=== PATIENT | female | born 1970 | race Caucasian/White ===

== ENCOUNTER → 2016-12-14 | Outpatient (CLI) | payer BC ==
--- NOTE | 2016-12-14 15:40 | RAD ---
Examination: 3 views of the right knee history: History of right knee pain for 2 weeks. Comparison: None available Findings: The alignment of the knee joint grossly appears unremarkable. There is no acute fracture or dislocation identified. Impression: No acute osseous findings
== END | disposition home or self-care (01) ==
LOC: DXRADRC 14:09
PROVIDERS: ATTEND Physician Assistant Medical
DX: M25.561 Pain in right knee (principal)
CPT/HCPCS: 73562

== ENCOUNTER 2017-04-25 22:09 | Emergency (ER) | payer BC, OTHER ==
[~2017-04-25] VITALS: Ht 157.5 cm; Wt 61.4 kg
[2017-04-25] MEDS ORDERED: LURA20TA PO (22:37)
[2017-04-25] MEDS ORDERED: DIVA500T2 PO (22:37)
[2017-04-25] MEDS ORDERED: BUDE10.2 IH (22:37)
[2017-04-25] MEDS ORDERED: DEXAMETHASONE SOD PHOS 10 MG/ML VIAL IV ONE (22:45)
[2017-04-25] MEDS ORDERED: IV NORMAL SALINE 1,000ML 1,000 ML IV ONE (22:45)
[2017-04-25] MEDS ORDERED: diphenhydrAMINE 50 MG/ML VIAL IVP ONE (22:45)
[2017-04-25] MEDS ORDERED: METOCLOPRAMIDE HCL 10 MG/2 ML VIAL. IV ONE (22:45)
[2017-04-25] MEDS ORDERED: MAGNESIUM SULFATE 2GM 50 ML IV ONE (22:45)
[2017-04-25] MEDS ORDERED: cloNIDine HCL 0.1 MG TABLET PO ONE ×2 (22:45→23:45)
--- NOTE | 2017-04-25 22:50 | PHYS DOC ---
Past History Past Medical History: Hypertension, Migraines Past Surgical History: Appendectomy, Cholecystectomy, Hysterectomy Alcohol Use: None Drug Use: None Adult General Chief Complaint Chief Complaint: HYPERTENSION HPI HPI Patient is a 46 year old F who presents with headache and high blood pressure. Patient states that for the past couple days she's been having increased blood pressures and has been keeping a diary with blood pressures systolic ranging between 160 and 200. Patient is not currently on any blood pressure medication at this time. Patient also has a history of migraines. Patient states the headache is to the left side of her head. Patient describes sensitivity to light. Patient states she has a follow-up with a neurologist for further evaluation of her headaches. Patient denies any fevers. Patient denies any chest pain returns of breath. Patient has nausea with no vomiting. Patient other complaints. Review of Systems Review of Systems GEN: Denies fevers, chills, sweats HEENT: Denies blurred vision, sore throat CV: Denies chest pain RESP: Denies shortness of air, cough GI: Denies n/v/d NEURO: Headache MSK: Denies weakness, joint pain/swelling Current Medications Current Medications Current Medications Medications (Trade) Dose Ordered Sig/Shannan Start Time Stop Time Status Last Admin Dose Admin Clonidine HCl (Catapres) 0.1 mg 1X ONCE 04/25/17 22:45 04/25/17 22:46 DC Dexamethasone Sodium Phosphate (Decadron) 10 mg 1X ONCE 04/25/17 22:45 04/25/17 22:46 DC Diphenhydramine HCl (Benadryl) 50 mg 1X ONCE 04/25/17 22:45 04/25/17 22:46 DC Magnesium Sulfate 50 ml @ 25 mls/hr 1X ONCE 04/25/17 22:45 04/26/17 00:44 Metoclopramide HCl (Reglan) 10 mg 1X ONCE 04/25/17 22:45 04/25/17 22:46 DC Sodium Chloride 1,000 ml @ 1,000 mls/hr 1X ONCE 04/25/17 22:45 04/25/17 23:44 Allergies Allergies Allergies Coded Allergies Type Severity Reaction Last Updated Verified morphine Allergy Severe 02/24/16 Yes Physical Exam Physical Exam GEN.: No apparent distress. Alert and oriented. HEENT: Head is normocephalic, atraumatic, pupils are equal and reactive bilaterally, extraocular muscles are intact bilaterally NECK: Supple. LUNGS: CTAB. HEART: RRR, S1, S2 present. Peripheral pulses intact ABDOMEN: Soft, nontender. Positive bowel sounds. EXTREMITIES: Without any cyanosis. NEUROLOGIC: Normal speech, normal tone, cranial nerves II through XII are grossly intact without any focal neurological deficits PSYCHIATRIC: Normal affect, normal mood. SKIN: No ulcerations Current Patient Data Vital Signs Vital Signs Date Time Temp Pulse Resp B/P (MAP) Pulse Ox O2 Delivery O2 Flow Rate FiO2 04/25/17 22:09 98.2 82 16 100 Room Air EKG EKG [] Radiology/Procedures Radiology/Procedures CT scan of the head was unremarkable[] Course & Med Decision Making Course & Med Decision Making Pertinent Labs and Imaging studies reviewed. (See chart for details) ED course: Patient was seen and examined emergency room CBC, BMP, CT scan of head without contrast, 1 L normal saline, 2 g magnesium, 10 mg of Decadron, 59 g of Benadryl , 10 monos Reglan were ordered 2342: Patient was reevaluated in which she is feeling much better and updated on lab work and CT findings. Patient's repeat blood pressure after receiving 0.1 mg of Catapres was 129/78 0043: Patient was ambulated around emergency room with no difficulties. Patient' s blood pressure was in the 140s systolic and she was asymptomatic. Patient is stable for discharge. MDM: After reviewing the chart, CC/HPI/PMH, physical exam, [lab results], [ radiological results], I do not believe the patient has acute intracranial process warranting further workup and/or admission at this time. I do not believe the patient has an acute hypertensive emergency warranting IV blood pressure medication. On reevaluation the patient is feeling much better and the headache is resolved and her blood pressures come down. I believe the patient is stable for discharge. Recommended short-term follow-up with her PCP for blood pressure management. Additional verbal discharge instructions were provided to the patient and that if symptoms get worse or any new symptoms arise that are worrisome to the patient she is to return to the emergency room immediately [] Dragon Disclaimer Dragon Disclaimer This chart was dictated in whole or in part using Voice Recognition software in a busy, high-work load, and often noisy Emergency Department environment. It may contain unintended and wholly unrecognized errors or omissions. Departure Departure: Impression: Primary Impression: Headache Additional Impression: Hypertension Disposition: 01 HOME, SELF-CARE Condition: IMPROVED Referrals: HARDEEP MABRY (PCP) Patient Instructions: General Headache Without Cause, Hypertension Additional Instructions: Please follow-up with your family physician in the next one to 2 days and return if symptoms increase Problem Qualifiers DANIEL PAREKH DO Apr 25, 2017 22:50
[2017-04-25 23:09] LABS: BASO % 1 % (0-3); EOS # 0.2 x10^3/uL (0.0-0.7); EOS % 2 % (0-3); HEMATOCRIT 43.8 % (36.0-47.0); HEMOGLOBIN 15.2 g/dL (12.0-15.5); LYMPH # 2.3 x10^3/uL (1.0-4.8); LYMPH % 35 % (24-48); MEAN CORPUSCULAR HEMOGLOBIN 30 pg (25-35); MEAN CORPUSCULAR HGB CONC 35 g/dL (31-37); MEAN CORPUSCULAR VOLUME 86 fL (79-100); MONO # 0.5 x10^3/uL (0.0-1.1); MONO % 7 % (0-9); NEUT # 3.6 x10^3uL (1.8-7.7); NEUT % 55 % (31-73); PLATELET COUNT 212 x10^3/uL (140-400); RED CELL DISTRIBUTION WIDTH 13.8 % (11.5-14.5); WHITE BLOOD COUNT 6.5 x10^3/uL (4.0-11.0)
[2017-04-25 23:14] LABS: CALCIUM 9.5 mg/dL (8.5-10.1); CREATININE 1.3 mg/dL (0.6-1.0); GFR 43.9; POTASSIUM 4.1 mmol/L (3.5-5.1)
--- NOTE | 2017-04-25 23:29 | RAD ---
INDICATION: [id number] Severe headache, elevated blood pressure, change in vision, dizziness. No priors. COMPARISON: None. TECHNIQUE: Axial CT images obtained through the head without intravenous contrast. One or more of the following individualized dose reduction techniques were utilized for this examination: 1. Automated exposure control; 2. Adjustment of the mA and/or kV according to patient size; 3. Use of iterative reconstruction technique. FINDINGS: No intracranial hemorrhage. No midline shift. Basal cisterns patent. Ventricles and sulci are unremarkable. No acute osseous abnormality. Nasal septal deviation to the left. IMPRESSION: 1. No acute intracranial hemorrhage. Electronically signed by: Henry Turk MD (04/25/2017 11:26 PM) [facility]
[2017-04-25] MEDS ORDERED: KETOROLAC 30 MG/ML VIAL. IV ONE (23:30)
[2017-04-26] MEDS ORDERED: IV NORMAL SALINE 1,000ML 1,000 ML IV ONE
[2017-04-26 00:40] VITALS: BP 146/92
== END 2017-04-26 00:41 | disposition home or self-care (01) ==
LOC: ER 22:09
DX: G43.909 Migraine, unspecified, not intractable, without status migrainosus (principal); I10 Essential (primary) hypertension; Z88.5 Allergy status to narcotic agent
CPT/HCPCS: 36415; 70450; 80048; 85025; 96365; 96375; 99285; J1100; J1200; J1885; J2765; J3475; J7030

== ENCOUNTER → 2018-05-13 | Outpatient (CLI) | payer OTHER ==
[~2018-05-13] MED LIST: BUDE10.2 IH; DIVA500T2 PO; IOHEXOL 240 MG/ML 50ML VIAL. PO ONE; IOHEXOL 300 MG/ML 75 ML VIAL. IV ONE; LURA20TA PO
--- NOTE | 2018-05-14 10:28 | RAD ---
CT ABD PELV W/ORAL IV CONTRAST dated 05/13/2018 12:00 AM Indication: Pain.RLQ pain, pelvic pain, bloating, increased retention of fluid for two weeks. OMNI 240 30ml in BREEZA OMNI 300 60ml, reduced dose per dept protocol. GFR 48, CREAT 1.3. Comparison: 02/24/2016 Technique: Contiguous axial imaging of the abdomen and pelvis performed following the administration of oral contrast and 60 cc Omnipaque 300. One or more of the following individualized dose reduction techniques were utilized for this examination: 1. Automated exposure control 2. Adjustment of the mA and/or kV according to patient size 3. Use of iterative reconstruction technique Findings: Limited images of lung bases are clear. Heart size within normal limits. No pleural or pericardial effusion. Liver is of diffuse low density compatible with fatty infiltration. No apparent mass. Biliary tree normal in caliber. Gallbladder surgically absent. Spleen is normal in size. Pancreas, adrenal glands and right kidney are unremarkable. There is a 3 mm calcific stone at the upper pole left kidney with associated cortical scarring. 2 mm calcific stone stone at the mid to lower pole left kidney. The left kidney is somewhat atrophic and there is some prominence of the left renal pelvis. No definite ureteral stone or hydronephrosis. Partially opacified GI tract normal in caliber and contour. No focal bowel wall thickening. No inflammatory stranding in the mesentery. The appendix is not identified and may be surgically absent. No free fluid or lymphadenopathy. Abdominal aorta normal in caliber. Images of pelvis show mildly distended urinary bladder. Uterus is surgically absent. No free fluid or lymphadenopathy. Bone windows show no acute findings. Mild multilevel spondylosis. IMPRESSION: 1. No acute abnormality of abdomen or pelvis. 2. Mild fatty infiltration of the liver. 3. Left-sided nephrolithiasis with cortical scarring and atrophy, similar to prior study. There is mild prominence of the left pelvicalyceal system, unchanged. 4. Status post cholecystectomy and hysterectomy. Electronically signed by: Smooth Ford MD (05/14/2018 10:25 AM) [facility]
== END | disposition home or self-care (01) ==
LOC: CT 15:59
PROVIDERS: ATTEND Neuromusculoskeletal Medicine & OMM
DX: N20.0 Calculus of kidney (principal); N26.1 Atrophy of kidney (terminal); K76.0 Fatty (change of) liver, not elsewhere classified; Z90.49 Acquired absence of other specified parts of digestive tract
CPT/HCPCS: 74177; Q9967

== ENCOUNTER → 2019-06-06 | Outpatient (CLI) | payer OTHER ==
[~2019-06-06] MED LIST changes: -IOHEXOL 240 MG/ML 50ML VIAL. PO ONE; -IOHEXOL 300 MG/ML 75 ML VIAL. IV ONE
--- NOTE | 2019-06-06 12:35 | RAD ---
HAND RIGHT 3V 06/06/2019 12:10 PM INDICATION: Right hand pain COMPARISON: None available. TECHNIQUE: 3 views of the right hand are provided. FINDINGS: There is no acute fracture or dislocation. Bone mineralization is within normal limits. Joint spaces are maintained. Regional soft tissues are within normal limits. There is no soft tissue gas or osseous erosion. IMPRESSION: No acute fracture or dislocation. Electronically signed by: Vivi Decker MD (06/06/2019 12:32 PM) [facility]
== END | disposition home or self-care (01) ==
LOC: PMG 11:27
PROVIDERS: ATTEND Physician Assistant Medical
DX: M79.641 Pain in right hand (principal)
CPT/HCPCS: 73130

== ENCOUNTER 2020-11-09 17:33 | Emergency (ER) | payer OTHER ==
[~2020-11-09] VITALS: Ht 157.5 cm; Wt 77.2 kg
[2020-11-09] MEDS ORDERED: METOPROLOL TART IMMED RELEASE 25 MG TABLET. PO ONE (18:15)
[2020-11-09 18:53] LABS: BASO # 0.1 x10^3/uL (0.0-0.2); BASO % 1 % (0-3); EOS # 0.2 x10^3/uL (0.0-0.7); EOS % 3 % (0-3); HEMATOCRIT 47.3 % (36.0-47.0); LYMPH # 2.9 x10^3/uL (1.0-4.8); LYMPH % 39 % (24-48); MEAN CORPUSCULAR HEMOGLOBIN 29 pg (25-35); MEAN CORPUSCULAR HGB CONC 34 g/dL (31-37); MEAN CORPUSCULAR VOLUME 87 fL (79-100); MONO # 0.6 x10^3/uL (0.0-1.1); MONO % 8 % (0-9); NEUT # 3.6 x10^3uL (1.8-7.7); NEUT % 49 % (31-73); PLATELET COUNT 273 x10^3/uL (140-400); RED BLOOD COUNT 5.44 x10^6/uL (3.50-5.40); RED CELL DISTRIBUTION WIDTH 13.9 % (11.5-14.5); WHITE BLOOD COUNT 7.3 x10^3/uL (4.0-11.0)
[2020-11-09 19:02] LABS: CALCIUM 9.6 mg/dL (8.5-10.1); CREATININE 1.2 mg/dL (0.6-1.0); GFR 47.4; POTASSIUM 3.8 mmol/L (3.5-5.1)
[2020-11-09 19:08] LABS: ALBUMIN 4.1 g/dL (3.4-5.0); ALBUMIN/GLOBULIN RATIO 1.2 (1.0-1.7); TOTAL BILIRUBIN 0.6 mg/dL (0.2-1.0); TOTAL PROTEIN 7.6 g/dL (6.4-8.2)
[2020-11-09 19:16] VITALS: BP 165/101
--- NOTE | 2020-11-09 19:44 | PHYS DOC ---
Past History Past Medical History: Hypertension (YORDAN ABREU APRN) Past Surgical History: Appendectomy, Cholecystectomy, Hysterectomy (YORDAN ABREU APRN) Alcohol Use: None Drug Use: None (YORDAN ABREU APRN) Adult General Chief Complaint Chief Complaint: HYPERTENSION HPI HPI Patient is a 50-year-old female who presents to the emergency department reporting that she went for a follow-up appointment for her high blood pressure and to get other labs done such as hemoglobin A1c and work-up for her ongoing high blood pressure problems, patient states that her blood pressure was 180/110 at her appointment and she was immediately sent to the emergency department for a hypertensive emergency. Patient denies any headaches, shortness of breath, chest pain, abdominal pain, chest congestion nasal congestion, nausea, vomiting, or diarrhea. Patient denies any other physical complaints or physical concerns. Patient states she takes 50 mg of metoprolol at home, and was going in to see her primary care doctor to get her blood pressure medications adjusted. Patient states she does not keep an accurate record of her blood pressure (YORDAN ABREU APRN) Review of Systems Review of Systems 14 body systems of review of systems have been reviewed. See HPI for pertinent positives and negative responses, otherwise all other systems are negative, nonpertinent or noncontributory. (YORDAN ABREU APRN) Current Medications Current Medications Current Medications Medications (Trade) Dose Ordered Sig/Shannan Start Time Stop Time Status Last Admin Dose Admin Metoprolol Tartrate (Lopressor) 25 mg 1X ONCE 11/09/20 18:15 11/09/20 18:16 DC 11/09/20 18:47 25 MG (YORDAN ABREU APRN) Allergies Allergies Allergies Coded Allergies Type Severity Reaction Last Updated Verified morphine Allergy Severe 02/24/16 Yes clonidine Allergy Unknown 05/13/18 Yes (YORDAN ABREU APRN) Physical Exam Physical Exam Constitutional: Well developed, well nourished, no acute distress, non-toxic appearance. 50-year-old female in no apparent distress. HENT: Normocephalic, atraumatic, bilateral external ears normal, oropharynx mo ist, no oral exudates, nose normal. Oropharynx moist, pink, no deep tissue infection appreciated, no drooling, no trismus, no lymphadenopathy of the head or neck appreciated. Eyes: PERRLA, EOMI, conjunctiva normal, no discharge. Neck: Normal range of motion, no tenderness, supple, no stridor. No meningismus signs, no nuchal rigidity appreciated. Cardiovascular:Heart rate regular rhythm, no murmur, heart sounds S1-S2 to auscultation. Lungs & Thorax: Bilateral breath sounds clear to auscultation all lung bah, no adventitious lung sounds appreciated. Abdomen: Bowel sounds normal, soft, no tenderness, no masses, no pulsatile masses. Skin: Warm, dry, no erythema, no rash. Back: No tenderness, no CVA tenderness. Extremities: No tenderness, no cyanosis, no clubbing, ROM intact, no edema. Neurologic: Alert and oriented X 3, normal motor function, normal sensory function, no focal deficits noted. Psychologic: Affect normal, judgement normal, mood normal. (YORDAN ABREU APRN) Current Patient Data Vital Signs Vital Signs Date Time Temp Pulse Resp B/P (MAP) Pulse Ox O2 Delivery O2 Flow Rate FiO2 11/09/20 19:16 53 20 165/101 (122) 99 Room Air 11/09/20 18:34 98.9 Lab Results Laboratory Tests Test 11/09/20 18:40 White Blood Count 7.3 x10^3/uL (4.0-11.0) Red Blood Count 5.44 x10^6/uL (3.50-5.40) H Hemoglobin 16.0 g/dL (12.0-15.5) H Hematocrit 47.3 % (36.0-47.0) H Mean Corpuscular Volume 87 fL (79-100) Mean Corpuscular Hemoglobin 29 pg (25-35) Mean Corpuscular Hemoglobin Concent 34 g/dL (31-37) Red Cell Distribution Width 13.9 % (11.5-14.5) Platelet Count 273 x10^3/uL (140-400) Neutrophils (%) (Auto) 49 % (31-73) Lymphocytes (%) (Auto) 39 % (24-48) Monocytes (%) (Auto) 8 % (0-9) Eosinophils (%) (Auto) 3 % (0-3) Basophils (%) (Auto) 1 % (0-3) Neutrophils # (Auto) 3.6 x10^3uL (1.8-7.7) Lymphocytes # (Auto) 2.9 x10^3/uL (1.0-4.8) Monocytes # (Auto) 0.6 x10^3/uL (0.0-1.1) Eosinophils # (Auto) 0.2 x10^3/uL (0.0-0.7) Basophils # (Auto) 0.1 x10^3/uL (0.0-0.2) Sodium Level 143 mmol/L (136-145) Potassium Level 3.8 mmol/L (3.5-5.1) Chloride Level 108 mmol/L (98-107) H Carbon Dioxide Level 27 mmol/L (21-32) Anion Gap 8 (6-14) Blood Urea Nitrogen 13 mg/dL (7-20) Creatinine 1.2 mg/dL (0.6-1.0) H Estimated GFR (Cockcroft-Gault) 47.4 BUN/Creatinine Ratio 11 (6-20) Glucose Level 95 mg/dL (70-99) Calcium Level 9.6 mg/dL (8.5-10.1) Total Bilirubin 0.6 mg/dL (0.2-1.0) Aspartate Amino Transferase (AST) 25 U/L (15-37) Alanine Aminotransferase (ALT) 54 U/L (14-59) Alkaline Phosphatase 94 U/L (46-116) Total Protein 7.6 g/dL (6.4-8.2) Albumin 4.1 g/dL (3.4-5.0) Albumin/Globulin Ratio 1.2 (1.0-1.7) (YORDAN ABREU APRN) EKG EKG [] (YORDAN ABREU APRN) Radiology/Procedures Radiology/Procedures [] (YORDAN ABREU APRN) Heart Score C/O Chest Pain: No Risk Factors: Risk Factors: DM, Current or recent (<one month) smoker, HTN, HLP, family history of CAD, obesity. Risk Scores: Risk Factors: DM, Current or recent (<one month) smoker, HTN, HLP, family history of CAD, obesity. (YORDAN ABREU APRN) Course & Med Decision Making Course & Med Decision Making Pertinent Labs and Imaging studies reviewed. (See chart for details) 50-year-old female, vital signs reviewed, presents emergency department for a high blood pressure that was taken in her doctor's office just prior to arrival. Patient's blood pressure was 146/94 examination. Discussed with patient we will draw a CBC and a BMP and give a 25 mg of metoprolol and monitor for a period of time. Patient had no chest pain, the patient was nontoxic in formerly [facility], the patient was not hypoxic. Discussed EKG and chest x-ray, the patient I made a joint decision to defer this at this time as she has no chest pain or chest congestion or shortness of breath. Patient lab results were unremarkable, discussed with patient lab results, discussed with patient at length keeping an accurate daily log of her blood pressures. Patient's physical reexamination continued to be unremarkable, the patient remained nontoxic in appearance, she was not hypoxic, bedside blood pressure was 165/90. Patient gave verbal understanding of discharge home instructions, keeping a daily log of her blood pressures twice a day for the next several days until she sees her primary care physician this coming Saturday. Patient gave verbal understanding of return to ER precautions or concerns, patient felt comfortable going home and keeping a daily log of her blood pressures and following up with her doctor this coming Saturday. Patient was discharged home without incident. (YORDAN ABREU APRN) Dragon Disclaimer Dragon Disclaimer This electronic medical record was generated, in whole or in part, using a voice recognition dictation system. (YORDAN ABREU APRN) Attending Co-Sign The chart was reviewed. The case was discussed. Agree with the plan of care. (JARAD REINOSO DO) Departure Departure: Impression: Primary Impression: High blood pressure Disposition: 01 HOME / SELF CARE / HOMELESS Condition: GOOD Referrals: AGGIE MABRY (PCP) Additional Instructions: You were seen today in the emergency department for high blood pressure, we have discussed at length keeping an accurate log of your blood pressures twice a day to bring to your primary care provider JAK Majano. We adrian lab work today that did not show any concerning findings or require an admission to the hospital today. Please return to the emergency department for worsening symptoms or other concerns. Please increase your fluid intake as we discussed. Please continue to take your home medications as prescribed by your primary c are provider, I encourage you to see Aggie soon as she may adjust your blood pressure medications. EMERGENCY DEPARTMENT GENERAL DISCHARGE INSTRUCTIONS Thank you for coming to [facility] (ED) today and trusting us with you care. We trust that you had a positivie experience in our Emergency Department. If you wish to speak to the department management, you may call the director at [phone]. YOUR FOLLOW UP INSTRUCTIONS ARE FOLLOWS: 1. Do you have a private Doctor? If you do not have a private doctor, please ask for a resource list of physicians or clinics that may be able to assist you with follo w up care. 2. The Emergency Physician has interpreted your x-rays. The X-Ray specialist will also review them. If there is a change in the findings, you will be notified in 48 hours when at all possible. 3. A lab test or culture has been done, your results will be reviewed and you will be notified if you need a change in treatment. ADDITIONAL INSTRUCTIONS AND INFORMATION: 1. Your care today has been supervised by a physician who is specially trained in emergency care. Many problems require more than one evaluation for a complete diagnosis and treatment. We recommend that you schedule your follow up appointment as rec ommended to ensure complete treatment of you illness or injury. If you are unable to obtain follow up care and continue to have a problem, or if your condition worsens, we recommend that you return to the ED. 2. We are not able to safely determine your condition over the phone nor are we able to give sound medical advice over the phone. For these safety reasons, if you call for medical advice we will ask you to come to the ED for further evaluation. 3. If you have any questions regarding these discharge instructions please call the ED at [phone]. SAFETY INFORMATION: In the interest of safety, wellness, and injury prevention; we encourage you to wear your sealbelt, if you smoke; quite smoking, and we encourage family to use a protective helmet for bicycling and other sporting events that present an increased risk for head injury. IF YOUR SYMPTOMS WORSEN OR NEW SYMPTOMS DEVELOP, OR YOU HAVE CONCERNS ABOUT YOUR CONDITION; OR IF YOUR CONDITION WORSENS WHILE YOU ARE WAITING FOR YOUR FOLLOW UP APPOINTMENT; EITHER CONTACT YOUR PRIMARY CARE DOCTOR, THE PHYSICIAN WHOSE NAME AND NUMBER YOU WERE GIVEN, OR RETURN TO THE ED IMMEDIATELY. Problem Qualifiers Primary Impression: High blood pressure Hypertension type: unspecified Qualified Codes: I10 - Essential (primary) hypertension YORDAN ABREU APRN Nov 09, 2020 19:44 JARAD REINOSO DO Nov 10, 2020 04:37
== END 2020-11-09 19:49 | disposition home or self-care (01) ==
LOC: ER 17:33
DX: I10 Essential (primary) hypertension (principal); Z88.5 Allergy status to narcotic agent; Z88.8 Allergy status to other drugs, medicaments and biological substances
CPT/HCPCS: 36415; 80053; 85025; 99283